=== PATIENT | male | born 1975 | race Caucasian/White ===

== ENCOUNTER 2024-01-24 13:34 | Outpatient (CLI) | payer OTHER, SELFPAY | END 2024-01-24 13:35 | disposition home or self-care (01) | PROVIDERS: PCP Nurse Practitioner Family; Visit Provider Nurse Practitioner Family | DX: I10 Essential (primary) hypertension (principal); Z13.220 Encounter for screening for lipoid disorders | CPT/HCPCS: 80053; 80061 ==

== ENCOUNTER 2025-01-14 08:09 | Outpatient (CLI) | payer OTHER, SELFPAY | END 2025-01-14 08:10 | disposition home or self-care (01) | LOC: NFLDREF 01-16 13:10 | PROVIDERS: PCP Nurse Practitioner Family; Referring Provider Nurse Practitioner Family; Visit Provider Nurse Practitioner Family | DX: E78.5 Hyperlipidemia, unspecified (principal); I10 Essential (primary) hypertension; Z12.5 Encounter for screening for malignant neoplasm of prostate | CPT/HCPCS: 80053; 80061; G0103 ==